=== PATIENT | female | born 1970 | race Caucasian/White ===

== ENCOUNTER 2018-08-29 13:21 | Emergency (ER) | payer MEDICARE, MEDICAID ==
[~2018-08-29] VITALS: Ht 160 cm; Wt 136.5 kg
[2018-08-29] MEDS ORDERED: ESCI20TA45 (14:06)
[2018-08-29] MEDS ORDERED: BUSP15TA60 (14:06)
[2018-08-29] MEDS ORDERED: OMEP20CA12 (14:06)
[2018-08-29] MEDS ORDERED: DILT120C53 (14:06)
[2018-08-29] MEDS ORDERED: TRAM50TA2 (14:06)
[2018-08-29] MEDS ORDERED: AMIT50TA3 (14:06)
[2018-08-29] MEDS ORDERED: MIRT30TA6 (14:06)
--- NOTE | 2018-08-29 14:39 | Diagnostic Imaging Report ---
Indication: Right hip pain. Comparison: None. Findings: Two views of the right hip demonstrate no fracture or dislocation. There is benign thickening of the visualized cortex. There is no osseous lesion. No significant degeneration. Impression: No fracture or dislocation. Dictated by: Dictated on workstation # [id number]
--- NOTE | 2018-08-29 15:04 | ED Lower Extremity ---
General Chief Complaint: Lower Extremity Stated Complaint: RT LEG/HIP PAIN - PT FELL THROUGH PORCH Nursing Triage Note: Fell through deck with R leg. Isaac abrasions to lower leg and is complaining of pain. Able to walk on leg and move joints. Nursing Sepsis Screen: No Definite Risk Source: patient Exam Limitations: no limitations History of Present Illness Date Seen by Provider: Aug 29, 2018 Time Seen by Provider: 14:00 Initial Comments 48-year-old female presents with pain in her right leg and hip. Patient was walking on her patient's deck when the board broke and she fell through. She has some abrasions to her right leg around the knee. Her main pain is up in her right hip. She does not feel that she broke it but she would like to have it evaluated. She is able to bear weight but it hurts. She has full range of motion with pain. No obvious deformity. She is unsure when her last tetanus was. Onset: just prior to arrival Allergies and Home Medications Allergies Coded Allergies: cephalexin (Verified Allergy, Unknown, 08/29/18) morphine (Verified Allergy, Unknown, 08/29/18) Patient Home Medication List Home Medication List Reviewed: Yes Review of Systems Constitutional: no symptoms reported EENTM: no symptoms reported Respiratory: no symptoms reported Gastrointestinal: no symptoms reported Genitourinary: no symptoms reported Musculoskeletal: see HPI Skin: see HPI Past Iucobhw-Glgnuc-Qhilib Hx Past Med/Social Hx: Reviewed Nursing Past Med/Soc Hx Patient Social History Alcohol Use: Denies Use Recreational Drug Use: No Smoking Status: Current Everyday Smoker 2nd Hand Smoke Exposure: Yes Recent Foreign Travel: No Contact w/Someone Who Travel: No Recent Infectious Disease Expo: No Physical Abuse: No Sexual Abuse: No Mistreated: No Physical Exam Vital Signs Vital Signs - First Documented 08/29/18 13:44 Temp 98.4 Pulse 101 Resp 18 B/P (MAP) 157/98 (117) Pulse Ox 98 Capillary Refill : Less Than 3 Seconds Height, Weight, BMI Height: 5'3.00" Weight: 301lbs. oz. 136.660766ai; BMI Method:Stated General Appearance: WD/WN, no apparent distress HEENT: PERRL/EOMI Neck: non-tender, supple Cardiovascular: normal peripheral pulses, regular rate, rhythm Respiratory: chest non-tender, lungs clear, normal breath sounds, no accessory muscle use Hips: right hip soft tissue tenderness Knees: left knee non-tender; bilateral knee normal range of motion; right knee soft tissue tenderness (Abrasion medial aspect of the lower leg) Ankles: bilateral ankle non-tender Progress/Results/Core Measures Results/Orders My Orders Orders - DUGLAS BAIRD DO Hip 2-3 View Right (08/29/18 14:02) Knee 2 View Right (08/29/18 14:02) Vital Signs/I&O 08/29/18 13:44 Temp 98.4 Pulse 101 Resp 18 B/P (MAP) 157/98 (117) Pulse Ox 98 Blood Pressure Mean: 117 Progress Progress Note : Progress Note Patient with negative imaging of both her knee and her hip. Discussed with her this likely just sprained. Tylenol and ibuprofen as needed for pain. Ice to affected area for 24 hours and warm moist heat as needed. Follow-up with her primary care physician in 7-10 days if no improvement. Departure Impression Primary Impression: Sprain of knee Qualified Codes: S83.91XA - Sprain of unspecified site of right knee, initial encounter Additional Impressions: Sprain of right hip Qualified Codes: S73.101A - Unspecified sprain of right hip, initial encounter Abrasion, right lower leg, initial encounter Disposition: 01 HOME, SELF-CARE Condition: Stable Departure-Patient Inst. Referrals: SELF,MIGUEL A LÓPEZ (PCP/Family) Primary Care Physician Patient Instructions: Contusion (DC), Sprain (DC) Add. Discharge Instructions: Follow-up with primary care physician if no improvement in 7-10 days. Ice to affected area for 24 hours and warm moist heat., On ibuprofen as needed for pain All discharge instructions reviewed with patient and/or family. Voiced understanding. DUGLAS BAIRD DO Aug 29, 2018 15:04
--- NOTE | 2018-08-29 15:24 | Diagnostic Imaging Report ---
INDICATION: Fall, right knee pain. COMPARISON: None. EXAMINATION: Two views of the right knee were obtained. FINDINGS: Abnormal thickening and sclerosis of the tibial and distal fibula cortex. This is also visualized in portions of the proximal femur. This has the appearance of a benign melorheostosis. There is no pathologic fracture. There is no joint effusion. Moderate degenerative change is seen involving all three compartments of the knee. There is a BB foreign body in the posterior aspect of the calf. IMPRESSION: 1. No acute fracture or dislocation. 2. 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 Chronic BB foreign body. 4. Degenerative joint disease. Dictated by: Dictated on workstation # [id number]
[2018-08-29 15:33] VITALS: BP 129/96
== END 2018-08-29 15:34 | disposition home or self-care (01) ==
LOC: ER FS 13:23
DX: S83.91XA Sprain of unspecified site of right knee, initial encounter (principal); S73.101A Unspecified sprain of right hip, initial encounter; F17.200 Nicotine dependence, unspecified, uncomplicated; Z88.1 Allergy status to other antibiotic agents; Z88.5 Allergy status to narcotic agent; W18.39XA Other fall on same level, initial encounter
CPT/HCPCS: 73502; 73560

== ENCOUNTER 2020-12-09 10:37 | Emergency (ER) | payer MEDICAID, MEDICARE ==
[~2020-12-09] VITALS: Ht 160 cm; Wt 143.9 kg
[~2020-12-09 10:37] MED LIST: AMIT50TA3; BUSP15TA60; DILT120C53; ESCI20TA39; MIRT-69; OMEP20CA18; TRM50T
[2020-12-09 10:51] VITALS: BP 125/82
--- NOTE | 2020-12-09 10:52 | ED Cough/URI ---
General Chief Complaint: Cough/Cold/Flu Symptoms Stated Complaint: COUGH History of Present Illness Date Seen by Provider: Dec 09, 2020 Time Seen by Provider: 10:48 Initial Comments 50-year-old female presents with cough for 2 days. Patient reports she has "chronic bronchitis" that the cause given her difficulty sleeping. She had a low-grade subjective fever 3 days ago but none since. She quit smoking back in July. She does use inhalers. No other systemic complaints Allergies and Home Medications Allergies Coded Allergies: cephalexin (Verified Allergy, Unknown, 08/29/18) morphine (Verified Allergy, Unknown, 08/29/18) Patient Home Medication List Home Medication List Reviewed: Yes Review of Systems Review of Systems Constitutional: see HPI; No chills Respiratory: cough; No short of breath Cardiovascular: No chest pain, No palpitations Gastrointestinal: No abdominal pain, No nausea, No vomiting Musculoskeletal: no symptoms reported Skin: no symptoms reported Psychiatric/Neurological: No Symptoms Reported Physical Exam Vital Signs - First Documented Capillary Refill : Height: 5'3.00" Weight: 301lbs. oz. 136.366103fi; BMI Method:Stated General Appearance: no apparent distress Respiratory: no respiratory distress, no accessory muscle use, wheezing Cardiovascular: normal peripheral pulses, regular rate, rhythm Gastrointestinal: non tender, soft (Occasional) Neurologic/Psychiatric: alert, normal mood/affect, oriented x 3 Skin: normal color, warm/dry Progress/Results/Core Measures Suspected Sepsis SIRS Temperature: Pulse: Respiratory Rate: Blood Pressure / Mean: Results/Orders My Orders Orders - DUGLAS BAIRD L DO Benzonatate Capsule (Tessalon Perles) (12/09/20 11:00) Dexamethasone Oral Soln (Ed) (Decadron I (12/09/20 11:00) Medications Given in ED Current Medications Medications Dose Ordered Sig/Benjamin Route Start Time Stop Time Status Last Admin Dose Admin Dexamethasone 10 mg ONCE ONCE PO 12/09/20 11:00 12/09/20 11:02 DC 12/09/20 11:17 10 MG Vital Signs/I&O 12/09/20 12/09/20 10:51 10:51 Temp 36.0 Pulse 84 Resp 18 B/P (MAP) 125/82 (96) Pulse Ox 98 O2 Delivery Room Air Room Air Capillary Refill : Progress Note : Progress Note Patient with mild flare of chronic bronchitis. We will give her some azithro mycin, gave her dose of steroids in the ER. We will also give her some Tessalon Perles for the cough. She is stable discharged home. She should follow-up with her primary care provider in 3 to 5 days. Departure Impression Primary Impression: Acute bronchitis with COPD Disposition: HOME, SELF-CARE Condition: Stable Departure-Patient Inst. Referrals: SELF,MIGUEL A LÓPEZ (PCP/Family) Primary Care Physician Patient Instructions: Acute Bronchitis, Adult (DC) Add. Discharge Instructions: Follow-up with your primary care provider in 4 to 5 days All discharge instructions reviewed with patient and/or family. Voiced understanding. Scripts Benzonatate (Tessalon Perle) 100 Mg Capsule 100 MG PO TID PRN for COUGH, #14 CAP Prov: DUGLAS BAIRD DO 12/09/20 Azithromycin (Azithromycin) 250 Mg Tablet 250 MG PO UD, #6 TAB TAKE 2 TABLETS ON DAY ONE THEN TAKE 1 TABLET DAILY FOR FOUR MORE DAYS Prov: DUGLAS BAIRD DO 12/09/20 DUGLAS BAIRD DO Dec 09, 2020 10:52
[2020-12-09] MEDS ORDERED: BENZONATATE 100 MG (TESSALON) CAPSULE PO SCH (11:00)
[2020-12-09] MEDS ORDERED: BENZ-13 PO (11:25)
[2020-12-09] MEDS ORDERED: AZIT250T12 PO (11:25)
== END 2020-12-09 11:29 | disposition home or self-care (01) ==
LOC: EDUNIT# 10:37 → ER FS 10:39
DX: J20.9 Acute bronchitis, unspecified (principal); J44.0 Chronic obstructive pulmonary disease with (acute) lower respiratory infection; Z87.891 Personal history of nicotine dependence
CPT/HCPCS: 99283

== ENCOUNTER 2021-04-12 11:13 | Emergency (ER) | payer MEDICARE ==
[~2021-04-12] VITALS: Ht 160 cm; Wt 133.0 kg
[~2021-04-12 11:13] MED LIST changes: +AZIT250T12 PO; +BENZ-13 PO
[2021-04-12 11:15] VITALS: BP 176/109
--- NOTE | 2021-04-12 11:17 | ED GU-Female ---
General Chief Complaint: - Reproductive Stated Complaint: VOMITING; KHUSHI FLANK PAIN; URINARY PAIN History of Present Illness Date Seen by Provider: Apr 12, 2021 Time Seen by Provider: 11:20 Initial Comments 51-year-old female presents with pain with urination for the last few days, reports that this morning she has developed right-sided flank pain. She has had multiple episodes of vomiting today. She reports that she had a fever yesterday. She complains of some pain in her upper back but thinks it is from her vomiting. She denies any chest pain. She denies any abdominal pain. She denies any diarrhea. Patient reports she tried Azo with no relief. Allergies and Home Medications Allergies Coded Allergies: cephalexin (Verified Allergy, Unknown, 08/29/18) morphine (Verified Allergy, Unknown, 08/29/18) Patient Home Medication List Home Medication List Reviewed: Yes Amitriptyline HCl (Amitriptyline HCl) 50 Mg Tablet, (Reported) Entered as Reported by: DARYL KENT on 08/29/18 140 Azithromycin (Azithromycin) 250 Mg Tablet, 250 MG PO UD Prescribed by: DUGLAS BAIRD on 12/09/20 112 Benzonatate (Tessalon Perle) 100 Mg Capsule, 100 MG PO TID PRN for COUGH Prescribed by: DUGLAS BAIRD on 12/09/20 1125 Buspirone HCl (Buspirone HCl) 15 Mg Tablet, (Reported) Entered as Reported by: DARYL KENT on 08/29/18 140 Diltiazem HCl (Cartia Xt) 120 Mg Cap.er.24h, (Reported) Entered as Reported by: DARYL KENT on 08/29/18 140 Escitalopram Oxalate (Escitalopram Oxalate) 20 Mg Tablet, (Reported) Entered as Reported by: DARYL KENT on 08/29/18 140 Mirtazapine (Mirtazapine) 30 Mg Tablet, (Reported) Entered as Reported by: DARYL KENT on 08/29/18 140 Omeprazole (Omeprazole) 20 Mg Capsule., (Reported) Entered as Reported by: DARYL KENT on 08/29/18 140 Tramadol HCl (Tramadol HCl) 50 Mg Tablet, (Reported) Entered as Reported by: DARYL KENT on 08/29/18 140 Review of Systems Review of Systems Constitutional: chills, fever, malaise EENTM: no symptoms reported Respiratory: No cough, No short of breath Cardiovascular: No chest pain Gastrointestinal: No abdominal pain; nausea, vomiting Genitourinary: flank pain, pain Musculoskeletal: back pain Skin: no symptoms reported Psychiatric/Neurological: No Symptoms Reported Hematologic/Lymphatic: No Symptoms Reported Physical Exam Vital Signs Vital Signs - First Documented 04/12/21 11:15 Temp 36.2 Pulse 95 Resp 18 B/P (MAP) 176/109 (131) Pulse Ox 99 O2 Delivery Room Air Capillary Refill : Height, Weight, BMI Height: 5'3.00" Weight: 301lbs. oz. 136.971811rj; 56.00 BMI Method:Stated General Appearance: mild distress Cardiovascular: normal peripheral pulses, regular rate, rhythm Respiratory: lungs clear, normal breath sounds Gastrointestinal: non tender, soft Back: CVA tenderness (R) Extremities: normal range of motion, normal capillary refill Neurologic/Psychiatric: alert, normal mood/affect, oriented x 3 Skin: normal color Focused Exam Lactate Level 04/12/21 11:48: Lactic Acid Level Laboratory Tests Test 04/12/21 11:48 Progress/Results/Core Measures Suspected Sepsis SIRS Temperature: Pulse: Respiratory Rate: Laboratory Tests 04/12/21 11:24: White Blood Count 10.5 Blood Pressure / Mean: 04/12/21 11:48: Laboratory Tests 04/12/21 11:24: Creatinine 1.01, Platelet Count 200, Total Bilirubin 0.3 Results/Orders Lab Results Laboratory Tests Test 04/12/21 11:20 04/12/21 11:24 04/12/21 11:48 Range/Units Urine Color YELLOW Urine Clarity TURBID Urine pH 7.0 5-9 Urine Specific [place] 1.010 L 1.016-1.022 Urine Protein TRACE H NEGATIVE Urine Glucose (UA) TRACE H NEGATIVE Urine Ketones NEGATIVE NEGATIVE Urine Nitrite NEGATIVE NEGATIVE Urine Bilirubin NEGATIVE NEGATIVE Urine Urobilinogen 0.2 < = 1.0 MG/DL Urine Leukocyte Esterase 1+ H NEGATIVE Urine RBC (Auto) 1+ H NEGATIVE Urine RBC 0-2 /HPF Urine WBC >100 H /HPF Urine Squamous Epithelial Cells 5-10 /HPF Urine Crystals NONE /LPF Urine Bacteria TRACE /HPF Urine Casts NONE /LPF Urine Mucus SMALL H /LPF Urine Culture Indicated YES White Blood Count 10.5 4.3-11.0 10^3/uL Red Blood Count 4.70 3.80-5.11 10^6/uL Hemoglobin 15.4 11.5-16.0 g/dL Hematocrit 44 35-52 % Mean Corpuscular Volume 95 80-99 fL Mean Corpuscular Hemoglobin 33 25-34 pg Mean Corpuscular Hemoglobin Concent 35 32-36 g/dL Red Cell Distribution Width 13.7 10.0-14.5 % Platelet Count 200 130-400 10^3/uL Mean Platelet Volume 11.3 9.0-12.2 fL Immature Granulocyte % (Auto) 0 % Neutrophils (%) (Auto) 76 H 42-75 % Lymphocytes (%) (Auto) 14 12-44 % Monocytes (%) (Auto) 9 0-12 % Eosinophils (%) (Auto) 0 0-10 % Basophils (%) (Auto) 0 0-10 % Neutrophils # (Auto) 8.0 H 1.8-7.8 X 10^3 Lymphocytes # (Auto) 1.5 1.0-4.0 X 10^3 Monocytes # (Auto) 0.9 0.0-1.0 X 10^3 Eosinophils # (Auto) 0.0 0.0-0.3 10^3/uL Basophils # (Auto) 0.0 0.0-0.1 10^3/uL Immature Granulocyte # (Auto) 0.0 0.0-0.1 10^3/uL Sodium Level 138 135-145 MMOL/L Potassium Level 4.0 3.6-5.0 MMOL/L Chloride Level 102 98-107 MMOL/L Carbon Dioxide Level 26 21-32 MMOL/L Anion Gap 10 5-14 MMOL/L Blood Urea Nitrogen 8 7-18 MG/DL Creatinine 1.01 0.60-1.30 MG/DL Estimat Glomerular Filtration Rate 58 BUN/Creatinine Ratio 8 Glucose Level 96 70-105 MG/DL Calcium Level 9.6 8.5-10.1 MG/DL Corrected Calcium 9.7 8.5-10.1 MG/DL Total Bilirubin 0.3 0.1-1.0 MG/DL Aspartate Amino Transf (AST/SGOT) 14 5-34 U/L Alanine Aminotransferase (ALT/SGPT) 12 0-55 U/L Alkaline Phosphatase 71 40-136 U/L Total Protein 7.3 6.4-8.2 GM/DL Albumin 3.9 3.2-4.5 GM/DL My Orders Orders - DUGLAS BAIRD DO Cbc With Automated Diff (04/12/21 11:23) Comprehensive Metabolic Panel (04/12/21 11:23) Lactic Acid Analyzer (04/12/21 11:23) Ua Culture If Indicated (04/12/21 11:23) Metoclopramide Injection (Reglan Injecti (04/12/21 11:23) Ns Iv 1000 Ml (Sodium Chloride 0.9%) (04/12/21 11:23) Ct Abdomen/Pelvis Wo (04/12/21 11:23) Ketorolac Injection (Toradol Injection) (04/12/21 11:23) Urine Culture (04/12/21 11:20) Vital Signs/I&O 04/12/21 11:15 Temp 36.2 Pulse 95 Resp 18 B/P (MAP) 176/109 (131) Pulse Ox 99 O2 Delivery Room Air Capillary Refill : Progress Note : Progress Note Patient with a urinary tract infection with likely early pyelonephritis. Patient is allergic to Keflex so I will start her on ciprofloxacin 500 mg twice a day for 7 days. At this time she does not meet admission criteria. I recommend she follow-up with her primary care provider in about 3 days for recheck of symptoms. Since this weekend if her symptoms worsen she should return to the ER. Patient stable and discharged Departure Impression Primary Impression: Urinary tract infection Qualified Codes: N30.01 - Acute cystitis with hematuria Disposition: HOME, SELF-CARE Condition: Stable Departure-Patient Inst. Referrals: SELFMIGUEL A MD (PCP/Family) Primary Care Physician Patient Instructions: Kidney Infection (DC), Urinary Tract Infection, Adult (DC) Add. Discharge Instructions: Drink plenty of fluids Follow-up with your primary care provider on Thursday for recheck of your, return to the ER if symptoms worsen over the weekend All discharge instructions reviewed with patient and/or family. Voiced understanding. Scripts Ondansetron (Ondansetron Odt) 4 Mg Tab.rapdis 4 MG PO Q6H PRN for NAUSEA/VOMITING, #20 TAB 0 Refills Prov: DUGLAS BAIRD DO 04/12/21 Ciprofloxacin HCl (Ciprofloxacin HCl) 500 Mg Tablet 500 MG PO BID, #14 TAB Prov: DUGLAS BAIRD DO 04/12/21 DUGLAS BAIRD DO Apr 12, 2021 11:17
--- OUTSIDE RECORDS SUMMARY | 2021-04-12 11:17 | XMS REPORT | Clinical Summary ---
Author Author [facility] Organization [facility] Address Unknown Phone Unavailable Care Team Providers Care Wrinkle Chaser Name Role Phone Self, Azar LÓPEZ PCP Aniceto Perez PA-C Unavailable Source Comments Some departments are not documenting in the electronic medical record. If you d o not see the information that you expected, contact Release of Information in [facility] [employer] Information Management department at [phone] for further assistan ce in locating additional records.[facility] Allergies Not on File Medications Not on file Active Problems Not on file Social History Date Tobacco Use Types Packs/Day Years Used Never Assessed Sex Assigned at Date Recorded Not on file Last Filed Vital Signs Not on file Plan of Treatment Health Maintenance Due Date Last Done Comments MEDICARE ANNUAL WELLNESS 1972 VISIT HIV SCREENING 02/23/1987 DTAP/TDAP VACCINES ( - 02/23/1990 Tdap) HEPATITIS C SCREENING 02/23/1990 PHYSICAL (COMPREHENSIVE) 02/23/1990 EXAM CERVICAL CANCER SCREENING 02/23/1993 BREAST CANCER SCREENING 2012 INFLUENZA VACCINE 01/06/2021 Results Not on filefrom Last 3 Months Insurance Type Payer Benefit Subscriber ID Effective Phone Address Plan / Dates Group Medicare MEDICARE MEDICARE [id number] 2007- PART A [place] Present B [place] [id number] 2020-P [place]ICAID resent [phone] [place] (Home) [place] [address] 1 Advance Directives Patient [employer] Explanation Type Date Recorded Advance Directive/DPOA
[2021-04-12] MEDS ORDERED: KETOROLAC 30 MG/ML VIAL IVP STA (11:23)
[2021-04-12] MEDS ORDERED: METOCLOPRAMIDE INJ 10 MG/2 ML (REGLAN) IVP STA (11:23)
[2021-04-12] MEDS ORDERED: NS IV 1000 ML 1,000 ML IV STA (11:23)
[2021-04-12 11:32] LABS: BILIRUBIN,URINE NEGATIVE (NEGATIVE); CLARITY,URINE TURBID; COLOR,URINE YELLOW; GLUCOSE, URINE (UA) TRACE (NEGATIVE); KETONES,URINE NEGATIVE (NEGATIVE); LEUKOCYTE ESTERASE ,URINE 1+ (NEGATIVE); NITRITE,URINE NEGATIVE (NEGATIVE); PROTEIN,URINE TRACE (NEGATIVE)
--- NOTE | 2021-04-12 11:54 | Diagnostic Imaging Report ---
PROCEDURE: CT abdomen and pelvis without contrast. TECHNIQUE: Multiple contiguous axial images were obtained through the abdomen and pelvis without the use of intravenous contrast. Auto Exposure Controls were utilized during the CT exam to meet ALARA standards for radiation dose reduction. INDICATION: Right-sided flank pain. No prior studies are available for comparison. The lung bases are clear. The liver is unremarkable. Gallbladder surgically absent. There is no biliary duct dilatation. Pancreas and spleen are unremarkable. No adrenal mass is detected. No definite renal calculi are identified. There is some questionable perinephric inflammatory stranding present. In addition, the right ureter is minimally prominent and shows some surrounding inflammation. No bladder calculi are detected. Aorta is nonaneurysmal. The bowel loops are normal caliber. No obstruction is seen. There is no free fluid or fluid collection. Uterus appears to be surgically absent. IMPRESSION: 1. No definite urinary tract calculi detected. There is mild right-sided perinephric and periureteral inflammatory stranding. While this could be a owing to a recent passage of a calculus, possibility of an inflammatory process such as a urinary tract infection or pyelonephritis cannot entirely excluded and correlation with urinalysis is recommended. The study is otherwise unremarkable. Dictated by: Dictated on workstation # [id number]
[2021-04-12 11:57] LABS: HEMATOCRIT 44 % (35-52); HEMOGLOBIN 15.4 g/dL (11.5-16.0); MEAN CORPUSCULAR HEMOGLOBIN 33 pg (25-34); MEAN CORPUSCULAR HGB CONC 35 g/dL (32-36); MEAN CORPUSCULAR VOLUME 95 fL (80-99); MEAN PLATELET VOLUME 11.3 fL (9.0-12.2); PLATELET COUNT 200 10^3/uL (130-400); WHITE BLOOD COUNT 10.5 10^3/uL (4.3-11.0)
[2021-04-12 11:58] LABS: BASOPHILS % (AUTO) 0 % (0-10); EOSINOPHILS % (AUTO) 0 % (0-10); LYMPHOCYTES # (AUTO) 1.5 X 10^3 (1.0-4.0); LYMPHOCYTES % (AUTO) 14 % (12-44); MONOCYTES # (AUTO) 0.9 X 10^3 (0.0-1.0); MONOCYTES % (AUTO) 9 % (0-12); NEUTROPHILS % (AUTO) 76 % (42-75)
[2021-04-12 12:00] LABS: BACTERIA,URINE TRACE /HPF; RBC,URINE 0-2 /HPF; WBC,URINE >100 /HPF
[2021-04-12 12:06] LABS: BILIRUBIN,TOTAL 0.3 MG/DL (0.1-1.0); CALCIUM 9.6 MG/DL (8.5-10.1); CREATININE SERUM 1.01 MG/DL (0.60-1.30)
[2021-04-12 12:07] LABS: ALBUMIN 3.9 GM/DL (3.2-4.5); TOTAL PROTEIN 7.3 GM/DL (6.4-8.2)
[2021-04-12] MEDS ORDERED: ONDA4TAB11 PO (12:18)
[2021-04-12] MEDS ORDERED: CIPR500T5 PO (12:18)
[2021-04-13] MEDS ORDERED: OXYC1TAB11 PO (16:12)
[2021-04-13] MEDS ORDERED: PRD20T PO (16:12)
== END 2021-04-12 12:27 | disposition home or self-care (01) ==
LOC: EDUNIT# 11:13 → ER FS 11:14
DX: N39.0 Urinary tract infection, site not specified (principal)
CPT/HCPCS: 36415; 74176; 80053; 81000; 83605; 85025; 87088

== ENCOUNTER 2021-04-13 14:23 | Emergency (ER) | payer MEDICARE ==
[~2021-04-13] VITALS: Ht 160 cm; Wt 133.9 kg
[~2021-04-13 14:23] MED LIST changes: +CIPR500T5 PO; +ONDA4TAB11 PO
[2021-04-13 14:51] LABS: BACTERIA,URINE FEW /HPF; BILIRUBIN,URINE NEGATIVE (NEGATIVE); CLARITY,URINE CLEAR; COLOR,URINE YELLOW; GLUCOSE, URINE (UA) NEGATIVE (NEGATIVE); KETONES,URINE NEGATIVE (NEGATIVE); LEUKOCYTE ESTERASE ,URINE TRACE (NEGATIVE); NITRITE,URINE NEGATIVE (NEGATIVE); PROTEIN,URINE TRACE (NEGATIVE)
[2021-04-13] MEDS ORDERED: ONDANSETRON 4 MG/2 ML (SDV) Z0FRAN IVP STA (14:55)
[2021-04-13] MEDS ORDERED: fentaNYL INJ 100 MCG/2 ML AMP IVP STA ×2 (14:55→16:08)
[2021-04-13] MEDS ORDERED: NS IV 1000 ML 1,000 ML IV STA (14:55)
[2021-04-13 14:58] LABS: AMPHETAMINE SCREEN, URINE NEGATIVE (NEGATIVE); BARBITURATE SCREEN URINE NEGATIVE (NEGATIVE); BENZODIAZEPINES SCREEN URINE NEGATIVE (NEGATIVE); CANNABINOID SCREEN, URINE POSITIVE (NEGATIVE); COCAINE SCREEN URINE NEGATIVE (NEGATIVE); METHADONE STAT NEGATIVE (NEGATIVE); METHAMPHETAMINE SCREEN URINE S NEGATIVE (NEGATIVE); OPIATE SCREEN URINE NEGATIVE (NEGATIVE); OXYCODONE STAT NEGATIVE (NEGATIVE); PROPOXYPHENE STAT NEGATIVE (NEGATIVE); TRICYCLIC ANTIDEPRESSANTS SCRE POSITIVE (NEGATIVE)
--- NOTE | 2021-04-13 15:04 | ED General ---
General Stated Complaint: RT FLANK PAIN Source of Information: Patient, Old Records History of Present Illness Date Seen by Provider: Apr 13, 2021 Time Seen by Provider: 14:26 Initial Comments 51-year-old female presenting with complaints of recurrent right flank pain. She was seen yesterday here in the ED and diagnosed with urine infection and pyelonephritis. She was feeling better at time of discharge. She has a history of chronic pain and takes tramadol routinely. However this was not controlling her pain at home. She stated that she did not sleep well last night and today continued to have pain. Since the pain was severe she came to the emergency department because she felt like she could not continue to tolerate this. She has been taking the antibiotic as prescribed. She denies fever, chills, nausea, vomiting, headache, diarrhea, blood in her stool, blood in the urine. She reports that the CT scan done yesterday did not demonstrate any kidney stones. Timing/Duration: 2-3 Days Severity: Severe Modifying Factors: worse with Movement Associated Systoms: No Chest Pain, No Cough, No Diaphoresis, No Fever/Chills, No Headaches, No Loss of Appetite, No Malaise, No Nausea/Vomiting, No Rash, No Seizure, No Shortness of Air, No Syncope, No Weakness Allergies and Home Medications Allergies Coded Allergies: cephalexin (Verified Allergy, Unknown, 08/29/18) morphine (Verified Allergy, Unknown, 08/29/18) Patient Home Medication List Home Medication List Reviewed: Yes Amitriptyline HCl (Amitriptyline HCl) 50 Mg Tablet, (Reported) Entered as Reported by: DARYL KENT on 08/29/18 1406 Azithromycin (Azithromycin) 250 Mg Tablet, 250 MG PO UD Prescribed by: DUGLAS BAIRD on 12/09/20 1125 Benzonatate (Tessalon Perle) 100 Mg Capsule, 100 MG PO TID PRN for COUGH Prescribed by: DUGLAS BAIRD on 12/09/20 1125 Buspirone HCl (Buspirone HCl) 15 Mg Tablet, (Reported) Entered as Reported by: DARYL KENT on 08/29/18 1406 Ciprofloxacin HCl (Ciprofloxacin HCl) 500 Mg Tablet, 500 MG PO BID Prescribed by: DUGLAS BAIRD on 04/12/21 1218 Diltiazem HCl (Cartia Xt) 120 Mg Cap.er.24h, (Reported) Entered as Reported by: DARYL KENT on 08/29/18 140 Escitalopram Oxalate (Escitalopram Oxalate) 20 Mg Tablet, (Reported) Entered as Reported by: DARYL KENT on 08/29/18 140 Mirtazapine (Mirtazapine) 30 Mg Tablet, (Reported) Entered as Reported by: DARYL KENT on 08/29/18 140 Omeprazole (Omeprazole) 20 Mg Capsule., (Reported) Entered as Reported by: DARYL KENT on 08/29/18 140 Ondansetron (Ondansetron Odt) 4 Mg Tab.rapdis, 4 MG PO Q6H PRN for NAUSEA/VOMITING Prescribed by: DUGLAS BAIRD on 04/12/21 1218 Oxycodone HCl/Acetaminophen (Oxycodone-Acetaminophen 5-325) 1 Each Tablet, 1 EACH PO Q6H PRN for PAIN-SEVERE (8-10) Prescribed by: KONG LOERA on 04/13/21 1613 Prednisone (Prednisone) 20 Mg Tab, 40 MG PO DAILY Prescribed by: KONG LOERA on 04/13/21 1612 Tramadol HCl (Tramadol HCl) 50 Mg Tablet, (Reported) Entered as Reported by: DARYL KENT on 08/29/18 140 Review of Systems Review of Systems Constitutional: see HPI EENTM: no symptoms reported Respiratory: no symptoms reported Cardiovascular: no symptoms reported Gastrointestinal: see HPI Genitourinary: see HPI Musculoskeletal: see HPI Skin: No rash Psychiatric/Neurological: Anxiety Past [id number]-Gathwz-Fttgvb Hx Immunizations Up To Date First/Initial COVID19 Vaccinat: January 2021 Past Medical History Surgery/Hospitalization HX: Paget's disease, hypertension, depression Physical Exam Vital Signs Vital Signs - First Documented 04/13/21 04/13/21 14:31 16:23 Temp 36.4 Pulse 104 Resp 17 B/P (MAP) 155/111 (126) Pulse Ox 100 O2 Delivery Room Air Capillary Refill : Height, Weight, BMI Height: 5'3.00" Weight: 301lbs. oz. [id number]; 51.00 BMI Method:Stated General Appearance: Anxious, Moderate Distress, Obese HEENT: PERRL/EOMI, Pharynx Normal, Moist Mucous Membranes Neck: Full Range of Motion, Normal Inspection, Non Tender, Supple Respiratory: Chest Non Tender, Lungs Clear, Normal Breath Sounds, No Accessory Muscle Use, No Respiratory Distress Cardiovascular: Normal Peripheral Pulses, Tachycardia Gastrointestinal: Normal Bowel Sounds, No Pulsatile Mass, Soft; No Distended, No Guarding, No Rebound; Tenderness (Right posterior flank pain and CVA pain) Rectal: Deferred Back: CVA Tenderness (R) Extremity: Normal Capillary Refill, Normal Inspection, No Pedal Edema Neurologic/Psychiatric: Alert, Oriented x3 Skin: Normal Color, Warm/Dry Progress/Results/Core Measures Suspected Sepsis SIRS Temperature: Pulse: Respiratory Rate: Laboratory Tests 04/13/21 15:15: White Blood Count 9.7 Blood Pressure / Mean: Laboratory Tests 04/13/21 15:15: Creatinine 0.96, Platelet Count 192, Total Bilirubin 0.3 Results/Orders Lab Results Laboratory Tests Test 04/13/21 14:42 04/13/21 15:15 Range/Units Urine Color YELLOW Urine Clarity CLEAR Urine pH 6.0 5-9 Urine Specific [place] 1.020 1.016-1.022 Urine Protein TRACE H NEGATIVE Urine Glucose (UA) NEGATIVE NEGATIVE Urine Ketones NEGATIVE NEGATIVE Urine Nitrite NEGATIVE NEGATIVE Urine Bilirubin NEGATIVE NEGATIVE Urine Urobilinogen 0.2 < = 1.0 MG/DL Urine Leukocyte Esterase TRACE H NEGATIVE Urine RBC (Auto) TRACE-I H NEGATIVE Urine RBC NONE /HPF Urine WBC 10-25 H /HPF Urine Squamous Epithelial Cells 5-10 /HPF Urine Crystals NONE /LPF Urine Bacteria FEW H /HPF Urine Casts NONE /LPF Urine Mucus MODERATE H /LPF Urine Culture Indicated YES Urine Opiates Screen NEGATIVE NEGATIVE Urine Oxycodone Screen NEGATIVE NEGATIVE Urine Methadone Screen NEGATIVE NEGATIVE Urine Propoxyphene Screen NEGATIVE NEGATIVE Urine Barbiturates Screen NEGATIVE NEGATIVE Ur Tricyclic Antidepressants Screen POSITIVE H NEGATIVE Urine Phencyclidine Screen NEGATIVE NEGATIVE Urine Amphetamines Screen NEGATIVE NEGATIVE Urine Methamphetamines Screen NEGATIVE NEGATIVE Urine Benzodiazepines Screen NEGATIVE NEGATIVE Urine Cocaine Screen NEGATIVE NEGATIVE Urine Cannabinoids Screen POSITIVE H NEGATIVE White Blood Count 9.7 4.3-11.0 10^3/uL Red Blood Count 4.18 3.80-5.11 10^6/uL Hemoglobin 13.8 11.5-16.0 g/dL Hematocrit 40 35-52 % Mean Corpuscular Volume 95 80-99 fL Mean Corpuscular Hemoglobin 33 25-34 pg Mean Corpuscular Hemoglobin Concent 35 32-36 g/dL Red Cell Distribution Width 13.6 10.0-14.5 % Platelet Count 192 130-400 10^3/uL Mean Platelet Volume 11.1 9.0-12.2 fL Immature Granulocyte % (Auto) 0 % Neutrophils (%) (Auto) 77 H 42-75 % Lymphocytes (%) (Auto) 13 12-44 % Monocytes (%) (Auto) 9 0-12 % Eosinophils (%) (Auto) 0 0-10 % Basophils (%) (Auto) 0 0-10 % Neutrophils # (Auto) 7.5 1.8-7.8 X 10^3 Lymphocytes # (Auto) 1.3 1.0-4.0 X 10^3 Monocytes # (Auto) 0.9 0.0-1.0 X 10^3 Eosinophils # (Auto) 0.0 0.0-0.3 10^3/uL Basophils # (Auto) 0.0 0.0-0.1 10^3/uL Sodium Level 135 135-145 MMOL/L Potassium Level 3.7 3.6-5.0 MMOL/L Chloride Level 100 98-107 MMOL/L Carbon Dioxide Level 24 21-32 MMOL/L Anion Gap 11 5-14 MMOL/L Blood Urea Nitrogen 7 7-18 MG/DL Creatinine 0.96 0.60-1.30 MG/DL Estimat Glomerular Filtration Rate 62 BUN/Creatinine Ratio 7 Glucose Level 106 H 70-105 MG/DL Calcium Level 9.3 8.5-10.1 MG/DL Corrected Calcium 9.6 8.5-10.1 MG/DL Total Bilirubin 0.3 0.1-1.0 MG/DL Aspartate Amino Transf (AST/SGOT) 14 5-34 U/L Alanine Aminotransferase (ALT/SGPT) 13 0-55 U/L Alkaline Phosphatase 65 40-136 U/L Total Protein 7.0 6.4-8.2 GM/DL Albumin 3.6 3.2-4.5 GM/DL Lipase 14 8-78 U/L My Orders Orders - KONG LOERA MD Comprehensive Metabolic Panel (04/13/21 14:32) Lipase (04/13/21 14:32) Ua Culture If Indicated (04/13/21 14:32) Ed Iv/Invasive Line Start (04/13/21 14:32) Cbc With Automated Diff (04/13/21 14:32) Drug Screen Stat (Urine) (04/13/21 14:32) Urine Culture (04/13/21 14:42) Ns Iv 1000 Ml (Sodium Chloride 0.9%) (04/13/21 14:55) Fentanyl Inj (Sublimaze Injection) (04/13/21 14:55) Ondansetron Injection (Zofran Injectio (04/13/21 14:55) Ketorolac Injection (Toradol Injection) (04/13/21 16:08) Fentanyl Inj (Sublimaze Injection) (04/13/21 16:08) Vital Signs/I&O 04/13/21 04/13/21 14:31 16:23 Temp 36.4 Pulse 104 69 Resp 17 18 B/P (MAP) 155/111 (126) 133/76 Pulse Ox 100 O2 Delivery Room Air Room Air Capillary Refill : Progress Note #1: Progress Note As patient was presenting with recurrent flank pain will have to repeat the urine and blood work to see if there is any significant change from yesterday. She has not had long enough for the Cipro to treat the urine infection. Progress Note #2: Progress Note Labs appear stable without acute significant abnormality. The patient was given IV fluids for hydration, fentanyl for severe pain. Her urine appears to be slightly improved from yesterday with fewer white blood cells and bacteria. Counseled patient on results and findings. Advised to continue on antibiotics she has until pharmacy opens and then take new prescription. Reviewed K tracks on the patient and she had not filled any prescriptions other than the tramadol from her regular providers. Patient states that she is not on a pain contract where she could not receive prescription pain medications from other providers. She states that she was actually advised by her provider to come to the emergency department for other pain medicines that she needed something other than tramadol. Will prescribe a few Percocet for severe pain. Bentyl for abdominal pain and cramping. Encouraged to push fluids and rest Departure Impression Primary Impression: Acute right flank pain Additional Impression: Pyelonephritis Disposition: 01 HOME, SELF-CARE Condition: Improved Departure-Patient Inst. Decision time for Depature: 16:10 Referrals: SELF,MIGUEL A LÓPEZ (PCP/Family) Primary Care Physician Patient Instructions: Flank Pain ED, Opioids for Short-Term Treatment of Pain ED, Urinary Tract Infection, Adult ED Add. Discharge Instructions: Make sure you are drinking plenty of water and staying well hydrated. Take the full course of antibiotics to treat for infection. For severe pain use the Percocet. Take the Prednisone to help with inflammation and pain. For less severe pain use your Tramadol. Follow up with clinic Thursday as scheduled. Scripts Oxycodone HCl/Acetaminophen (Oxycodone-Acetaminophen 5-325) 1 Each Tablet 1 EACH PO Q6H PRN for PAIN-SEVERE (8-10) MDD 6 for 3 Days, #12 TAB 0 Refills Prov: KONG LOERA MD 04/13/21 Prednisone (Prednisone) 20 Mg Tab 40 MG PO DAILY for 5 Days, #10 TAB 0 Refills Prov: KONG LOERA MD 04/13/21 KONG LOERA MD Apr 13, 2021 15:04
[2021-04-13 15:20] LABS: HEMATOCRIT 40 % (35-52); HEMOGLOBIN 13.8 g/dL (11.5-16.0); MEAN CORPUSCULAR HEMOGLOBIN 33 pg (25-34); MEAN CORPUSCULAR HGB CONC 35 g/dL (32-36); MEAN CORPUSCULAR VOLUME 95 fL (80-99); MEAN PLATELET VOLUME 11.1 fL (9.0-12.2); NEUTROPHILS % (AUTO) 77 % (42-75); PLATELET COUNT 192 10^3/uL (130-400); WHITE BLOOD COUNT 9.7 10^3/uL (4.3-11.0)
[2021-04-13 15:21] LABS: BASOPHILS % (AUTO) 0 % (0-10); EOSINOPHILS % (AUTO) 0 % (0-10); LYMPHOCYTES # (AUTO) 1.3 X 10^3 (1.0-4.0); LYMPHOCYTES % (AUTO) 13 % (12-44); MONOCYTES # (AUTO) 0.9 X 10^3 (0.0-1.0); MONOCYTES % (AUTO) 9 % (0-12); NEUTROPHILS # (AUTO) 7.5 X 10^3 (1.8-7.8)
[2021-04-13 15:37] LABS: POTASSIUM 3.7 MMOL/L (3.6-5.0)
[2021-04-13 15:38] LABS: ALBUMIN 3.6 GM/DL (3.2-4.5); BILIRUBIN,TOTAL 0.3 MG/DL (0.1-1.0); CALCIUM 9.3 MG/DL (8.5-10.1); CREATININE SERUM 0.96 MG/DL (0.60-1.30)
[2021-04-13] MEDS ORDERED: KETOROLAC 30 MG/ML VIAL IVP STA (16:08)
[2021-04-13] MEDS ORDERED: PRD20T PO (16:12)
[2021-04-13] MEDS ORDERED: OXYC1TAB11 PO (16:12)
[2021-04-13 16:23] VITALS: BP 133/76
== END 2021-04-13 16:24 | disposition home or self-care (01) ==
LOC: EDUNIT# 14:23 → ER FS 14:24
DX: N12 Tubulo-interstitial nephritis, not specified as acute or chronic (principal); I10 Essential (primary) hypertension; F32.9 Major depressive disorder, single episode, unspecified; E66.9 Obesity, unspecified; Z68.43 Body mass index [BMI] 50.0-59.9, adult; Z79.899 Other long term (current) drug therapy
CPT/HCPCS: 36415; 80053; 80306; 81000; 83690; 85025; 87088; 96374; 96375; 96376